=== PATIENT | female | born 1955 | race Caucasian/White ===

== ENCOUNTER → 2024-10-21 10:21 | Outpatient (REF) | payer MEDICARE, SELFPAY | LOC: HWRCS 10:21 | PROVIDERS: ATTENDING PHYSICIAN Internal Medicine Cardiovascular Disease; FAMILY PHYSICIAN Family Medicine | DX: R06.02 Shortness of breath (principal) | CPT/HCPCS: 93306 ==

== ENCOUNTER → 2024-11-26 10:30 | Outpatient (REF) | payer MEDICARE, SELFPAY | LOC: HWRAD 10:30 | PROVIDERS: ATTENDING PHYSICIAN Internal Medicine Cardiovascular Disease; FAMILY PHYSICIAN Family Medicine | DX: I70.0 Atherosclerosis of aorta (principal); R60.0 Localized edema | CPT/HCPCS: 93970 ==

== ENCOUNTER → 2024-11-26 13:22 | Outpatient (REF) | payer SELFPAY | LOC: HWRAD 13:22 | PROVIDERS: ATTENDING PHYSICIAN Internal Medicine Cardiovascular Disease; FAMILY PHYSICIAN Family Medicine | DX: I70.0 Atherosclerosis of aorta (principal); E78.5 Hyperlipidemia, unspecified | CPT/HCPCS: 75571 ==